=== PATIENT | male | born 1975 | race Caucasian/White ===

== ENCOUNTER 2022-01-21 10:43 | Day surgery (SDC) | payer OTHER ==
[2022-01-21] MEDS ORDERED: Marcaine Mpf 0.5% Vial 30 Ml IJ ONE (10:44)
[2022-01-21] MEDS ORDERED: Depo-Medrol 40 MG/ML IM ONE (10:44)
[2022-01-21] MEDS ORDERED: Lactated Ringers 1,000 ML IV ONE (12:35)
[2022-01-21] MEDS ORDERED: DIPRIVAN 200 MG/20 ML IV ONE (12:59)
--- NOTE | 2022-01-21 15:17 | XRAY ---
Indication: Right hip and right greater trochanter bursa injection. Intraoperative fluoroscopy provided for 24 seconds. 2 digital spot images submitted for interpretation demonstrates needle tip lateral to right femur neck and greater trochanter. Small amount of contrast injected for both needle tip placement. Correlate with intraoperative findings/report.
--- NOTE | 2022-01-21 16:46 | XRAY ---
24 seconds of fluoroscopy was used in surgery for a right hip intra-articular and greater trochanteric bursa injection.
== END 2022-01-21 13:28 | disposition home or self-care (01) ==
LOC: SDC-PAIN 10:43
PROVIDERS: ATTEND Psychiatry & Neurology Pain Medicine
DX: M16.11 Unilateral primary osteoarthritis, right hip (principal); M70.61 Trochanteric bursitis, right hip; Z79.899 Other long term (current) drug therapy
CPT/HCPCS: 20610; 73502; 77002; J1030; J2704; Q9966

== ENCOUNTER 2023-10-13 13:16 | Day surgery (SDC) | payer OTHER ==
[2023-10-13] MEDS ORDERED: BUPIVACAINE 0.5% VIAL IJ ONE (13:17)
[2023-10-13] MEDS ORDERED: Depo-Medrol 40 MG/ML IM ONE (13:17)
[2023-10-13] MEDS ORDERED: DIPRIVAN 200 MG/20 ML IV ONE (14:50)
[2023-10-13] MEDS ORDERED: Lactated Ringers 1,000 ML IV ONE (15:13)
--- NOTE | 2023-10-13 16:46 | XRAY ---
Indication: Right hip injection. Intraoperative fluoroscopy provided for 11 seconds. Single digital spot image submitted for interpretation demonstrates needle tip projecting lateral to right femur neck. Small amount of contrast injected for needle tip placement. Correlate with intraoperative findings/report.
--- NOTE | 2023-10-13 16:49 | XRAY ---
Indication: Right knee injection. Intraoperative fluoroscopy provided for 10 seconds. 2 digital spot image submitted for interpretation demonstrates needle tip projecting over right femur intercondylar notch. Small amount of contrast injected for needle tip placement. Correlate with intraoperative findings/report.
--- NOTE | 2023-10-13 16:59 | XRAY ---
11 seconds of fluoroscopy was used in surgery for a right intra-articular hip injection.
--- NOTE | 2023-10-13 16:59 | XRAY ---
10 seconds of fluoroscopy was used in surgery for a right intra-articular knee injection.
== END 2023-10-13 15:14 | disposition home or self-care (01) ==
LOC: SDC-PAIN 13:16
PROVIDERS: ATTEND Psychiatry & Neurology Pain Medicine
DX: M17.11 Unilateral primary osteoarthritis, right knee (principal); M16.11 Unilateral primary osteoarthritis, right hip
CPT/HCPCS: 20610; 73501; 73560; 77002; J1030; J2704; Q9966

== ENCOUNTER 2023-11-24 15:21 | Day surgery (SDC) | payer OTHER ==
[2023-11-24] MEDS ORDERED: LIDOCAINE HCL 1% 50 MG/5 ML VL PF IJ ONE (15:22)
[2023-11-24] MEDS ORDERED: SYNVISC 16 MG/2 ML SYRINGE IU ONE (15:22)
--- NOTE | 2023-11-24 18:49 | XRAY ---
Indication: Right knee injection. Intraoperative fluoroscopy provided for 6 seconds. Single digital spot image submitted for interpretation demonstrates needle tip projecting over right femur intercondylar notch. Small amount of contrast injected for needle tip placement. Correlate with intraoperative findings/report.
--- NOTE | 2023-11-25 08:47 | XRAY ---
6 seconds of fluoroscopy was used in surgery for a right intra-articular knee injection.
== END 2023-11-24 17:10 | disposition home or self-care (01) ==
LOC: SDC-PAIN 15:21
PROVIDERS: ATTEND Psychiatry & Neurology Pain Medicine
DX: M17.11 Unilateral primary osteoarthritis, right knee (principal)
CPT/HCPCS: 20610; 73560; 77002; J2001; J7325; Q9966

== ENCOUNTER 2023-12-01 15:02 | Day surgery (SDC) | payer OTHER ==
[2023-12-01] MEDS ORDERED: SYNVISC 16 MG/2 ML SYRINGE IU ONE (15:03)
[2023-12-01] MEDS ORDERED: LIDOCAINE HCL 1% 50 MG/5 ML VL PF IJ ONE (15:03)
--- NOTE | 2023-12-01 21:02 | XRAY ---
Indication: Right knee injection Intraoperative fluoroscopy provided for 11 seconds. Single digital spot image submitted for interpretation demonstrates needle tip projecting over the right femur intercondylar notch. Small amount of contrast injected for needle tip placement. Correlate with intraoperative findings/report.
--- NOTE | 2023-12-02 08:57 | XRAY ---
11 seconds of fluoroscopy was used in surgery for a right intra-articular knee injection.
== END 2023-12-01 18:18 | disposition home or self-care (01) ==
LOC: SDC-PAIN 15:02
PROVIDERS: ATTEND Psychiatry & Neurology Pain Medicine
DX: M17.11 Unilateral primary osteoarthritis, right knee (principal)
CPT/HCPCS: 20610; 73560; 77002; J2001; J7325; Q9966

== ENCOUNTER 2023-12-08 15:22 | Day surgery (SDC) | payer OTHER ==
[2023-12-08] MEDS ORDERED: SYNVISC 16 MG/2 ML SYRINGE IU ONE (15:23)
[2023-12-08] MEDS ORDERED: XYLOCAINE-MPF 1% 5ML SDV IJ ONE (15:23)
--- NOTE | 2023-12-08 18:26 | XRAY ---
Indication: Right knee injection. Intraoperative fluoroscopy provided for 16 seconds. 2 digital spot image submitted for interpretation demonstrates needle tip projecting over right femur intercondylar notch. Small amount of contrast injected for needle tip placement. Correlate with intraoperative findings/report.
--- NOTE | 2023-12-09 14:46 | XRAY ---
16 seconds of fluoroscopy was used in surgery for a right intra-articular knee injection.
== END 2023-12-08 17:15 | disposition home or self-care (01) ==
LOC: SDC-PAIN 15:22
PROVIDERS: ATTEND Psychiatry & Neurology Pain Medicine
DX: M17.11 Unilateral primary osteoarthritis, right knee (principal)
CPT/HCPCS: 20610; 73560; 77002; J7325; Q9966

== ENCOUNTER 2024-09-13 06:28 | Day surgery (SDC) | payer OTHER ==
[2024-09-13] MEDS ORDERED: Decadron 4 MG ONE (06:31)
[2024-09-13] MEDS ORDERED: TYLENOL EXTRA STRENGTH 500 MG ONE (06:31)
[2024-09-13] MEDS ORDERED: CEFAZOLIN 2 GM/100 ML NaCl 2 GM/100 ML IVPB IV ONE (06:31)
[2024-09-13] MEDS ORDERED: NEURONTIN ONE (06:31)
[2024-09-13] MEDS ORDERED: Lactated Ringers 1,000 ML IV ONE (06:32)
[2024-09-13] MEDS ORDERED: celeBREX 100 MG ONE (06:32)
[2024-09-13] MEDS: Lactated Ringers 1,000 ML IV SCH (06:35)
[2024-09-13] MEDS: Decadron 4 MG PO ONE (06:35)
[2024-09-13] MEDS: NEURONTIN PO ONE (06:35)
[2024-09-13] MEDS: TYLENOL EXTRA STRENGTH 500 MG PO ONE (06:35)
[2024-09-13] MEDS: CEFAZOLIN 2 GM/100 ML NaCl 2 GM/100 ML IVPB IV SCH ×2 (06:36→14:13)
[2024-09-13] MEDS: celeBREX 100 MG PO ONE (06:36)
[2024-09-13] MEDS: TRANEXAMIC 1,000 MG/100ML-NACL 1,000 MG/100 ML PIGGYBACK IV ONE (07:52)
[2024-09-13] MEDS ORDERED: Naropin 0.5% 30 ML VIAL*** 123.125 MG, TORAdol 30 mg Injection*** 15 MG, Epinephrine Pr... IV ONE (08:00)
[2024-09-13 08:09] LABS: ABO TYPING B; RH TYPING POSITIVE
[2024-09-13 08:10] LABS: Antibody Screen NEGATIVE (NEGATIVE)
[2024-09-13] MEDS ORDERED: SUBLIMAZE 100 MCG/2 ML ONE (08:17)
[2024-09-13] MEDS ORDERED: propofoL IV ONE (08:18)
[2024-09-13] MEDS ORDERED: Versed 2 MG/2 ML Injection ONE (08:18)
[2024-09-13] MEDS ORDERED: PHENYLEPHRINE HCL ONE (08:45)
[2024-09-13] MEDS ORDERED: Ephedrine Sulfate 50 MG/ML ONE ×3 (08:54→11:21)
[2024-09-13] MEDS ORDERED: PITRESSIN 20 UNITS ONE (08:57)
[2024-09-13] MEDS ORDERED: Naropin 0.5% 30 ML VIAL ONE (10:22)
--- NOTE | 2024-09-13 12:14 | XRAY ---
Indication: Postop exam. Comparison: April 25, 2024 AP pelvis and 2 view right hip demonstrates interval right total hip arthroplasty with intact bipolar prosthesis/2 acetabular screws. Postoperative soft tissue changes including soft tissue emphysema and cutaneous ignacio. No other bony, articular, or soft tissue abnormalities.
[2024-09-13] MEDS: Glucophage 500 MG PO ONE (13:16)
[2024-09-13] MEDS ORDERED: Docusate Sodium 100 MG PO PRN (13:16)
[2024-09-13] MEDS ORDERED: Zofran 4 MG/2 ML VIAL IV PRN (13:17)
[2024-09-13] MEDS ORDERED: TYLENOL EXTRA STRENGTH 500 MG PO PRN (13:17)
[2024-09-13] MEDS ORDERED: MORPHINE SULFATE 2 MG INJ IV PRN (13:19)
[2024-09-13] MEDS ORDERED: Narcan 0.4 MG/ML IV PRN (13:20)
[2024-09-13] MEDS ORDERED: OXYCODONE-ACETAMINOPHEN 10-325 PO PRN (13:37)
[2024-09-13] MEDS: Sodium Chloride 0.9% 1000 ML 1,000 ML IV SCH (13:48)
[2024-09-13] MEDS ORDERED: VENTOLIN COMMON CANISTER IH PRN (13:53)
[2024-09-13] MEDS: Ecotrin 325 MG PO SCH (14:14)
[2024-09-13] MEDS: PERCOCET TABLET 5/325MG PO PRN (17:02)
[2024-09-14 03:50] VITALS: RESP 16
[2024-09-14 07:49] VITALS: BP 117/56; PULSE 64; TEMP 97.5; O2SAT 94
[2024-09-14] MEDS: Protonix 40MG Tablet PO SCH (09:21)
[2024-09-14] MEDS: MELOXICAM PO SCH (09:21)
[2024-09-14] MEDS: Zestril 20 MG PO SCH (09:21)
[2024-09-14] MEDS: Glucophage 500 MG PO SCH (09:21)
--- NOTE | 2024-09-14 09:46 | OP ---
SURGERY DATE/TIME: 09/13/2024 2976-3004 DIAGNOSIS: Right hip avascular necrosis. PROCEDURE: Right total hip replacement with posterior approach. SURGEON: Moe Pop MD. ANESTHESIA: Spinal and general plus peripheral block. ESTIMATED BLOOD LOSS: 150 mL. SPECIMENS: None. DRAINS: None. COMPLICATIONS: None. FINDINGS: Avascular necrosis with collapse of the head superiorly. INDICATIONS FOR PROCEDURE: Patient is a 49-year-old white male with painful right hip refractory to conservative care. He had evidence of avascular necrosis on x-ray and felt that this should be replaced for pain relief. IMPLANTS: Monroe 52 mm cup with 36 mm neutral liner and a 36 mm ceramic ball with 0 neck length and a 3 standard Avenir plus stem. There were 2 screws in the acetabulum, 25 mm length and 15 mm length. DESCRIPTION OF PROCEDURE AND FINDINGS: The patient was seen in the holding room. We identified the right hip as correct. This was initialed by me. He was taken to the OR where he had 2 g of Kefzol and 1000 mg of tranexamic acid. The patient had spinal anesthesia and then, he was positioned supine, had general anesthesia, then was positioned in the left lateral decubitus position with an axillary roll. His arms on arm board and an arm arana for the right arm. He had peg board holding him in the lateral position. He had sterile prepping and draping of his right lower extremity and hip. Time-out was performed by me. Then, 30 mL of 0.5% ropivacaine was mixed with Ketoralac and saline 30 mL. This was then injected with 20 mL into the incision, which was a posterior approach, curving posterior and proximally at the proximal end. The incision was carried down to the fascia. The fascia was then split with scissors and a Charnley retractor was placed superficial to the sciatic nerve. The sort external rotators of the femur from the quadratus femoris up to the piriformis were released. Capsule was then opened up to the 11 o'clock position. The hip was dislocated. The capsule was tagged with #2 Ethibond sutures. The wing retractor was placed posteriorly and a Cobra anteriorly and a Hohmann inferiorly. These retractors were placed after the femoral neck cut was made at a 45-degree angle to the shaft, 1.5 cm proximal to this with trochanter at a 45-degree angle. The head was measured at 48 mm. The acetabular labrum was excised with a Bovie. Reaming was done with the 48 reamer, going direct from medially until hitting the medial wall, then changing to direction of 45 degrees adduction and 20 degrees flexion. Going up in 2 mm increments at the size 51, then going up 1 mm increment to size 52. A trial 52 cup was trialed with good tight fit. The acetabulum was thoroughly irrigated and the true cup was impacted with a cluster hold in the posterior-superior aspect of the dome. One screw was placed posterior-superiorly and one posteriorly. The trial liner was then placed for a 36 head. The femoral canal was then prepared with a box chisel and canal finder, then broaching, starting with the starting broach and going up to size 3 with a good tight fit, flush with the cut. The trial reduction was done with a 0 neck standard 36 ball with a good leg length and stability. The stem was then removed. The 2 liner was placed, impacted, verified to be secure. The remaining 40 mL of the anesthetic solution were injected around the capsule. The hip was thoroughly irrigated, and then, the true stem was placed down the canal and impacted with good stability and same depth of seating as before. The 0 leg length 36 ceramic ball was impacted down to the trunnion and then, verified to be stable, then reduced into the hip with good stability and leg length. The capsule was repaired back with three #2 Ethibond and the piriformis was also repaired back with a #2 Ethibond. The irrigation was done again after removing the Charnley retractor and then, the fascia was closed with #1 Vicryl interrupted and running #1 Stratafix. The subcutaneous tissue was closed with 2-0 Vicryl and the skin with ignacio and then, sterile Aquacel dressing was applied. The patient had abduction pillow placed and was repositioned supine for his nerve block, and left stable in the OR. PLAN: Plan is for patient to be weightbearing as tolerated with posterior total hip precautions. He will go home today if comfortable. He will go home with Keflex for 5 days and aspirin 325 daily for 3 weeks and Percocet. He may remove the dressing in 5 days and shower but do not immerse the wound. He will be seen back in 10 to 12 days postop for stable removal. He is aware that I will be no longer be here permanently and will follow up with the other surgeons in the group.
--- NOTE | 2024-09-14 10:06 | PCM.NOTE ---
Date and Time: 09/14/24 1002 Subjective Assessment: Postop day 1 from right total hip placement. Was admitted due to quadriceps weakness.Pain is mild. Able to get himself up with a walker. Urinating and eating okay. Objective Exam Comments: 09/14/24 10:03 Alert and orient x 3 sitting up in chair. Unable to do straight leg raise but 5/5 dorsiflexion plantarflexion great toe Leg lengths seem equalAnd rotation normal X-ray shows good cementless THR withNo fracturesIn good Leg length Objective Data Vital Signs: Vital Signs - 24 hr Temp Pulse Resp BP Pulse Ox 09/14/24 07:48 97.5 F 64 16 117/56 94 L 09/14/24 05:03 83 16 93 L 09/14/24 03:49 98.7 F 80 16 113/72 92 L 09/13/24 23:30 97.4 F 83 19 100/64 94 L 09/13/24 19:45 98.3 F 98 H 19 103/60 92 L 09/13/24 18:59 84 18 94 L 09/13/24 16:59 87 17 106/56 92 L 09/13/24 16:40 97 09/13/24 14:00 101 H 16 118/56 96 09/13/24 13:21 96 H 16 98/49 93 L 09/13/24 12:55 96 H 17 118/68 95 09/13/24 12:40 93 H 16 97/52 89 L 09/13/24 12:10 84 17 101/59 96 Pain Assessment - Last Documented Pain Intensity [Right] 4 Pain Intensity 5 Pain Scale Used 0-10 Pain Scale Intake and Output: Intake & Output 09/11/24 09/12/24 09/13/24 09/14/24 11:59 11:59 11:59 11:59 Intake Total 960 Output Total 1900 Balance -940 Weight 86.3 kg Lab Results: Lab Results-Last 24 Hours 09/13/24 09/13/24 09/13/24 Range/Units 11:05 16:50 20:33 POC Glucometer 150 H 251 H 214 H (74 to 106) mg/dL 09/14/24 Range/Units 07:34 POC Glucometer 101 (74 to 106) mg/dL Radiology Exams: Radiology Procedures Category Date Time Status HIP UNI (2V) INCL PEL IF DONE Routine Exams 09/13/24 11:33 Completed Multi-Disciplinary Progress Notes: Multi-Disciplinary Progress Notes 09/13/24 17:12 Occupational Therapy Note by [place] (L#[id number])Supriya OT RECEIVED EVALUATION ORDER AND WILL HOLD UNTIL 09/14/24 DUE TO RIGHT LE NUMBNESS, POOR BLADDER CONTROL, O2 DESAT WITH ACTIVITY, AND MILD HYPOTENSION LIMITING SAFETY WITH FUNCTIONAL TRANSFERS AND ADLS. OT COMPLETED SCREEN IN ROOM DURING PT EVALUATION AND ASSISTED WITH SUPINE<>SIT T/F. Initialized on 09/13/24 17:12 - END OF NOTE Assessment/Plan (1) S/P total right hip arthroplasty Current Visit: Yes Status: Acute Assessment & Plan: Doing well. May discharge home today weightbearing as tolerated with posterior total hip cautions Remove dressing postop day 5 and shower then Aspirin 325 daily for 21 days postop for DVT prophylaxis Return 10 to 12 days postop for staple removal Outpatient Or home health therapy Patient may follow-up with Dr. Villalobos and discussed right total knee replacement or his left hip pain for future treatment Patient realizes I will be leaving September 19 permanently Code(s): Z96.641 - PRESENCE OF RIGHT ARTIFICIAL HIP JOINT
== END 2024-09-14 11:03 | disposition home or self-care (01) ==
LOC: SDC 06:28 → MED SURG 12:22 → SDC 09-14 11:03
PROVIDERS: ATTEND Orthopaedic Surgery
DX: M87.051 Idiopathic aseptic necrosis of right femur (principal)
CPT/HCPCS: 27130; 36415; 73502; 82947; 86850; 86900; 86901; 93005; 94760; J0690; J2250; J2371; J2704; J2795; J3010; A9270-GY

== ENCOUNTER 2025-06-21 15:32 | Day surgery (SDC) | payer OTHER ==
[2025-06-21] MEDS ORDERED: LIDOCAINE HCL 1% 50 MG/5 ML VL IJ ONE (15:33)
--- NOTE | 2025-06-21 20:48 | XRAY ---
Indication: Right knee injection. Intraoperative fluoroscopy provided for 11 seconds. Single digital spot image submitted for interpretation demonstrates needle tip projecting over right femur intercondylar notch. Small amount of contrast injected for needle tip placement. Correlate with intraoperative findings/report.
--- NOTE | 2025-06-22 12:03 | XRAY ---
11 seconds of fluoroscopy was used in surgery for a right intra-articular knee injection.
== END 2025-06-21 18:00 | disposition home or self-care (01) ==
LOC: SDC-PAIN 15:32
PROVIDERS: ATTEND Psychiatry & Neurology Pain Medicine
DX: M17.11 Unilateral primary osteoarthritis, right knee (principal); E11.9 Type 2 diabetes mellitus without complications

== ENCOUNTER 2025-06-27 16:01 | Day surgery (SDC) | payer OTHER ==
[2025-06-27] MEDS ORDERED: LIDOCAINE HCL 1% 50 MG/5 ML VL IJ ONE (16:02)
--- NOTE | 2025-06-27 19:01 | XRAY ---
Indication: Right knee injection. Intraoperative fluoroscopy provided for 8 seconds. Single digital spot image submitted for interpretation demonstrates needle tip projecting over right femur intercondylar notch. Small amount of contrast injected for needle tip placement. Correlate with intraoperative findings/report.
--- NOTE | 2025-06-28 12:57 | XRAY ---
8 seconds of fluoroscopy was used in surgery for a right intra-articular knee injection.
== END 2025-06-27 18:35 | disposition home or self-care (01) ==
LOC: SDC-PAIN 16:01
PROVIDERS: ATTEND Psychiatry & Neurology Pain Medicine
DX: M17.11 Unilateral primary osteoarthritis, right knee (principal); E11.9 Type 2 diabetes mellitus without complications